=== PATIENT | male | born 1945 | race Caucasian/White ===

== ENCOUNTER → 2024-09-09 13:44 | Outpatient (REF) | payer OTHER, SELFPAY | LOC: HWEVLT 13:44 | PROVIDERS: ATTENDING PHYSICIAN Radiology Vascular & Interventional Radiology | DX: I83.893 Varicose veins of bilateral lower extremities with other complications (principal) | CPT/HCPCS: 93970 ==

== ENCOUNTER → 2024-11-10 07:41 | Outpatient (REF) | payer OTHER, SELFPAY | LOC: HWEVLT 07:41 | PROVIDERS: ATTENDING PHYSICIAN Radiology Diagnostic Radiology | DX: I83.892 Varicose veins of left lower extremity with other complications (principal) | CPT/HCPCS: 36478; C1769 ==

== ENCOUNTER → 2024-11-24 11:27 | Outpatient (REF) | payer OTHER, SELFPAY | LOC: HWEVLT 11:27 | PROVIDERS: ATTENDING PHYSICIAN Radiology Diagnostic Radiology | DX: I83.892 Varicose veins of left lower extremity with other complications (principal) | CPT/HCPCS: 93971 ==

== ENCOUNTER 2025-01-15 10:37 | Emergency (ER) | payer OTHER, SELFPAY ==
[2025-01-15 10:42] VITALS: BP 178/81
--- NOTE | 2025-01-15 10:47 | ED.GENMED ---
History of Present Illness
General
Chief Complaint: Blood Pressure Problem
Time Seen by Provider: 01/15/25 10:47
History of Present Illness
History of Present Illness:
TIME OF INITIAL ENCOUNTER: 10:50 AM
HPI: The patient has history of high blood pressure was concerned of high blood pressure readings this morning. He woke up this morning feeling fine and then after breakfast had a sensation of feeling flushed. He decided take his blood pressure
and it was in the 170s. He takes telmisartan 80 mg with HCTZ 12.5 mg daily. He is compliant with taking this. When he went to his doctor's office a few weeks ago, he had blood pressures in the 140s which is high for him. He never had any chest
pain. No headaches. Denies any other symptoms or concerns.
EXAM:
GENERAL: Well appearing in no distress
HEENT: Moist oral mucosa
CARDIOVASCULAR: No murmurs, normal heart rate, regular rhythm, No chest wall tenderness
PULMONARY: No respiratory distress, breath sounds are clear and equal
ABDOMEN: Soft with no peritoneal signs, no tenderness
NEUROLOGIC: Excellent strength all extremities, no coordination deficits
PSYCHIATRIC: Appropriate mental status, normal insight and judgement
EXTREMITIES: Nontender, no edema, moves all extremities equally
SKIN: No rash, no lesions
NUMBER AND COMPLEXITY OF PROBLEMS ADDRESSED AT THE ENCOUNTER
� Chronic conditions affecting care: High blood pressure
� Acute Exacerbation and/or Progression of Chronic Illness: This is an exacerbation of a chronic problem
� Differential Diagnosis includes: Labile hypertension, poorly controlled high blood pressure, no suggestion for medication noncompliance, lab abnormality
AMOUNT AND/OR COMPLEXITY OF DATA TO BE REVIEWED AND ANALYZED
� I performed an independent evaluation of and my interpretation is:
EKG: Sinus, ventricular rate 65, no acute ST abnormality, no old to compare
CT:
X-rays:
Laboratory Studies: CBC and chemistries unremarkable
Other:
� Review of other/old records: I reviewed records, the patient had a colonoscopy in 2019
� Clinical information was obtained by an independent historian: None needed
� Prescriptions/Medications Considered but not given:
� Further testing considered but not performed:
RISK OF COMPLICATIONS AND/OR MORBIDITY OR MORTALITY OF PATIENT MANAGEMENT
� Social determinants of health affecting care: Lives at home
� Discussion with other providers:
� Escalation of care including admission/observation vs risk of discharge considered: The patient has virtually no symptoms currently with blood pressure systolics 178 upon arrival and then 159 spontaneously improved.
ANY OTHER UPDATES:
2:10 PM: I reassessed patient. The patient continues to feel well. Blood pressure most recently 131/74. He has virtually no symptoms. He never had any chest pain. EKG is unremarkable. He is to follow-up with primary care doctor and continue
his current blood pressure regimen.
Phy Exam
Physical Exam
Physical Exam:
See HPI
Course
Orders/Labs/Results
Orders:
Orders
01/15/25 10:38
ECG [Electrocardiogram (*1)] Urgent
Reason for Study: Palpitations
EKG- Treatment ONCE
01/15/25 11:12
Basic Metabolic Panel Urgent
Complete Blood Count/With Diff Urgent
Abnormal Lab Results
01/15/25
11:12
RDW 17.2 H %
(11.5-14.5)
Absolute Lymphs (auto) 1.1 L 10^3/uL
(1.2-3.4)
Lymphocytes % 19.4 L %
(20.5-51.1)
BUN 29 H mg/dl
(9-20)
Glucose 116 H mg/dl
(70-99)
01/15/25 11:12
01/15/25 11:12
Vital Signs
Blood pressure: 159/80
Initial and Last Documented VS:
Initial Vital Signs
Temp Pulse Resp BP Pulse Ox
37.1 C 71 20 178/81 98
01/15/25 10:42 01/15/25 10:42 01/15/25 10:42 01/15/25 10:42 01/15/25 10:42
Last Documented Vital Signs
Temp Pulse Resp BP Pulse Ox
37.1 C 75 20 131/74 87
01/15/25 10:42 01/15/25 13:00 01/15/25 10:42 01/15/25 13:32 01/15/25 13:32
*Critical Care Note
Total Time (30-74mins, 75-104mins- exclusive of procedures): Not Applicable
ED Attending Note
-
Portions of this chart may have been created with voice recognition software.� Occasional wrong word or��sound alike� substitutions may have occurred due to the inherent limitations of voice recognition software.
Discharge Plan
Departure
Referrals:
Dileep Zhang MD [Family Provider] -
Interventions
Interventions:
*Risk Screen - Suicide Last Done: 01/15/25 10:45
*General Assessment Last Done: 01/15/25 10:45
*Neglect/Abuse Screening Last Done: 01/15/25 10:45
*ED- Fall Risk Assessment Last Done: 01/15/25 10:45
*ED COVID-19 Vaccine History Last Done: 01/15/25 10:45
ED- Cardiac Assessment Last Done: 01/15/25 11:04
ED- Neurological Assessment Last Done: 01/15/25 11:04
ED- Pulmonary Assessment Last Done: 01/15/25 11:04
Discharge Date and Time
Print Language: [id number]
[2025-01-15 11:04] VITALS: BMI 28.4
[2025-01-15 11:22] LABS: % Basophils 0.7 % (0-2); % Immature Granulocytes 0.2 % (0-0.5); % Lymphocytes 19.4 % (20.5-51.1); % Monocytes 8.7 % (1.7-9.3); Absolute Eosinophils 0.2 10^3/uL (0-0.7); Absolute Lymphocytes 1.1 10^3/uL (1.2-3.4); Absolute Monocytes 0.5 10^3/uL (0.1-0.6); Absolute Neutrophils 3.7 10^3/uL (1.4-6.5); Hematocrit 42.2 % (39.0-52.0); Hemoglobin 14.1 g/dL (13.0-18.0); Mean Corp Hgb Conc. 33.4 g/dL (33.0-37.0); Mean Corpuscular Hgb 27.5 pg (27.0-31.0); Mean Corpuscular Volume 82.3 fL (80.0-94.0); Mean Platelet Volume 9.2 fL (7.4-10.4); Nucleated Red Blood Cells % 0 % (-); Platelet Count 187 10^3/uL (130-400); Red Blood Cell Count 5.13 10^6/uL (4.70-6.10); Red Cell Dist. Width 17.2 % (11.5-14.5); White Blood Cell Count 5.4 10^3/uL (4.8-10.8)
[2025-01-15 11:40] LABS: Blood Urea Nitrogen 29 mg/dl (9-20); Calcium 9.8 mg/dl (8.4-10.2); Carbon Dioxide 27 mmol/L (22-30); Chloride 102 mmol/L (98-107); Estimated Creatinine Clearance 51 ml/min; Glucose 116 mg/dl (70-99); Potassium 4.3 mmol/L (3.5-5.1); Sodium 137 mmol/L (135-145); eGFR > 60.00
[2025-01-15 11:45] VITALS: BP 139/75
[2025-01-15 12:46] VITALS: BP 132/77
[2025-01-15 13:32] VITALS: BP 131/74
== END 2025-01-15 14:18 | disposition home or self-care (01) ==
LOC: EMR 10:37
PROVIDERS: EMERGENCY PHYSICIAN Emergency Medicine; FAMILY PHYSICIAN Internal Medicine
DX: R03.0 Elevated blood-pressure reading, without diagnosis of hypertension (principal); R23.2 Flushing; Z79.899 Other long term (current) drug therapy
CPT/HCPCS: 99284; 80048; 85025; 93005